=== PATIENT | female | born 1940 | race Caucasian/White ===

== ENCOUNTER 2017-01-07 17:19 | Inpatient (IN) | payer MEDICARE ==
--- NOTE | 2017-01-07 19:00 | ED ---
Lower Extremity - HPI Summary HPI Summary: Patient is referred to the ED for bilateral lower extremity swelling and pain for 2 days. She denies a history of blood clots, but does have A-fib and is on Eloquist. She denies known trauma, change in activity, SOB, CP, WILSON or fevers. The pain and swelling in her legs have begun to inhibit her ability to walk and she feels unsteady. She has not fallen, but "almost". - History of Current Complaint Chief Complaint: EDExtremityLower Stated Complaint: BOTH LEGS SWOLLEN Time Seen by Provider: 01/07/17 18:44 Hx Obtained From: Patient Mechanism Of Injury: Unknown Onset of Pain: Days - 2 Onset/Duration: Still Present - 2 Severity Initially: Mild Severity Currently: Severe Pain Intensity: 0 Timing: Constant, Lasting Days - 2 Character Of Pain: Aching, Stiffness Associated Signs And Symptoms: Positive: Swelling, Redness Aggravating Factor(s): Standing, Ambulation Alleviating Factor(s): Nothing Able to Bear Weight: Yes - with pain - Allergies/Home Medications Allergies/Adverse Reactions: Allergies Allergy/AdvReac Type Severity Reaction Status Date / Time Penicillins Allergy Severe Airway Verified 07/04/16 19:20 Obstruction Latex Allergy Intermediate Rash Verified 07/04/16 19:20 Morphine Allergy Mild GI Upset Verified 07/04/16 19:20 Sulfa Antibiotics Allergy Rash Verified 07/04/16 19:20 Codeine AdvReac Mild Vomiting Verified 07/04/16 19:20 Home Medications: Home Medications Alendronate (NF) [Fosamax (NF)] 70 mg PO WEEKLY 01/07/17 [History Confirmed 07/16] Yeuqalh-Okmnecpndgcgs-Dewbfgfd [Excedrin Extra Strength] 1 - 2 tab PO Q6HR PRN 01/07/17 [History Confirmed 01/07/17] Dextromethorphan-Guaifenesin [Robitussin Cough+Chest Co 10-200 mg] 1 cap PO Q6HR PRN 01/07/17 [History Confirmed 01/07/17] Docusate CAP* [Colace Cap*] 100 mg PO DAILY PRN MDD 300 mg 01/07/17 [History Confirmed 01/07/17] Guaifenesin/Pseudo 600/60(NF) [Mucinex D 600/60 (NF)] 1 tab PO Q12H PRN [History Confirmed 01/07/17] Loperamide HCl [Imodium A-D] 2 mg PO DAILY PRN 01/07/17 [History Confirmed 01/07] LoraTADine TAB(NF) [Claritin 10 MG TAB(NF)] 10 mg PO DAILY PRN 01/07/17 [ History Confirmed 01/07/17] Raymond-3 Fatty Acids [Fish Oil [place]-3 1000 mg] 1 cap PO DAILY 01/07/17 [History Confirmed 01/07/17] rOPINIRole TAB* [Requip TAB*] 2 mg PO BEDTIME 01/07/17 [History Confirmed ] PMH/Surg Hx/FS Hx/Imm Hx Endocrine/Hematology History: Reports: Hx Anticoagulant Therapy Denies: Hx Diabetes, Hx Thyroid Disease Cardiovascular History: Reports: Hx Congestive Heart Failure, Hx Hypercholesterolemia, Other Cardiovascular Problems/Disorders - dyslipidemia Denies: Hx Hypertension - PER PT NO LONGER ON ANY MEDS, Hx Pacemaker/ICD Respiratory History: Reports: Hx Asthma, Hx Chronic Obstructive Pulmonary Disease (COPD), Hx Pneumonia, Other Respiratory Problems/Disorders - COPD GI History: Reports: Hx Ulcer History: Denies: Hx Renal Disease Musculoskeletal History: Reports: Hx Arthritis - polyrheumatica myalgia, Hx Rheumatoid Arthritis, Hx Back Problems, Hx Osteoporosis Sensory History: Reports: Hx Contacts or Glasses Denies: Hx Hearing Aid Opthamlomology History: Reports: Hx Contacts or Glasses Psychiatric History: Denies: Hx Panic Disorder - Cancer History Cancer Type, Location and Year: SKIN 1 YR AGOJSUT DX - SPINAL MELANOMA Hx Chemotherapy: No Hx Radiation Therapy: No - Surgical History Surgery Procedure, Year, and Place: FUSION LOW BACK X5. neck surgery x4. Rt SHOULDER - RCT 1985. APPENDECTOMY Hx Anesthesia Reactions: No Infectious Disease History: Denies: Hx Hepatitis, Hx Human Immunodeficiency Virus (HIV), Traveled Outside the [place] in Last 30 Days - Family History Known Family History: Positive: None - Social History Occupation: Retired Lives: With Family Alcohol Use: None Substance Use Type: Reports: None Smoking Status (MU): Former Smoker Review of Systems Negative: Fever Negative: Chest Pain Negative: Shortness Of Breath Positive: Decreased ROM, Edema Negative: Bruising Negative: Weakness, Paresthesia, Numbness All Other Systems Reviewed And Are Negative: Yes Physical Exam Triage Information Reviewed: Yes Vital Signs On Initial Exam: Initial Vitals Temp Pulse Resp BP Pulse Ox 98.0 F 84 16 108/55 94 01/07/17 17:26 01/07/17 17:26 01/07/17 17:26 01/07/17 17:26 01/07/17 17:26 Vital Signs Reviewed: Yes Appearance: Positive: Well-Appearing, Well-Nourished, Pain Distress Skin: Positive: Warm, Skin Color Reflects Adequate Perfusion, Dry, Erythema @ - bilateral ankles R>L Head/Face: Positive: Normal Head/Face Inspection Eyes: Positive: EOMI, MOY, Conjunctiva Clear ENT: Positive: Hearing grossly normal Respiratory/Lung Sounds: Positive: Clear to Auscultation, Breath Sounds Present Cardiovascular: Positive: RRR Abdomen Description: Positive: Nontender, Soft. Negative: CVA Tenderness (R), CVA Tenderness (L) Bowel Sounds: Positive: Present Musculoskeletal: Positive: Pain @ - TTP from bilateral knees distally through feet, Anika Sign Left, Anika Sign Right, Edema Left, Edema Right Neurological: Positive: Sensory/Motor Intact, Alert, Oriented to Person Place, Time, NV Bundle Intact Distally, Unable to Assess Gait Psychiatric: Positive: Affect/Mood Appropriate AVPU Assessment: Alert Diagnostics - Vital Signs Vital Signs Temp Pulse Resp BP Pulse Ox 01/07/17 17:26 98.0 F 84 16 108/55 94 - Laboratory Result Diagrams: 01/07/17 19:50 01/07/17 19:50 Lab Statement: Any lab studies that have been ordered have been reviewed, and results considered in the medical decision making process. - Ultrasound No standard instances Ultrasound Interpretation: No Acute Changes Ultrasound Interpretation Completed By: Radiologist Lower Extremity Course/Dx - Course Course Of Treatment: I spoke with Dr. Cruz, her oncologist, who concurred that admission was the best course. He will see the patient in the morning, and she will be admitted by hospital medicine. - Diagnoses Differential Diagnosis/HQI/PQRI: Positive: Cellulitis, Compartment Syndrome, DVT , Gout, Infection, Phlebitis, Sprain, Strain Provider Diagnoses: Cellulitis - Physician Notifications Discussed Care of Patient With: Dr. Moulton, ED attending; Dr. Cruz, oncology; Dr. Burns, hospitalist. Instructed by Provider To: Admit As Inpatient Discharge - Discharge Plan Condition: Stable Disposition: ADMITTED TO [facility] Referrals: Andi Martin MD [Primary Care Provider] -
[2017-01-07] MEDS ORDERED: Diazepam SYRINGE* 5 MG/ML SYRINGE IV ONE ×2 (19:25→21:16)
[2017-01-07 20:04] LABS: Hematocrit 30 % (35-47); Hemoglobin 9.4 g/dl (12.0-16.0); Mean Corpuscular HGB Conc 31 g/dl (31-36); Mean Corpuscular Hemoglobin 26 pg (27-31); Mean Corpuscular Volume 84 fL (80-97); Mean Platelet Volume 9 um3 (7.4-10.4); Red Blood Count 3.59 10^6/ul (4.0-5.4); Red Cell Distribution Width 18 % (10.5-15); White Blood Count 48.1 10^3/ul (3.5-10.8)
[2017-01-07 20:15] LABS: Add Diff/Slide Review? Slide Review Added; Comments Flag Yes
[2017-01-07 20:27] LABS: Albumin 3.7 g/dL (3.2-5.2); BUN/Creatinine Ratio 18.6 (8-20); C Reactive Protein 5.7 mg/L (< 5.00); Calcium 9.1 mg/dL (8.6-10.3); EGFR Non-African American 64.5 (>60); Potassium 3.9 mmol/L (3.5-5.0); Total Bilirubin 0.3 mg/dL (0.2-1.0); Total Protein 7.7 g/dL (6.4-8.9)
[2017-01-07 20:56] LABS: Immature Granulocytes 19 % (0-9); Myelocytes % 3 % (0-1); Neutrophil % 63 % (38-83); Promyelocytes % 1 %
[2017-01-07 20:57] LABS: Add Path Review? YES; Hypochromasia 2+; Macrocytosis 1+; Polychromasia 1+
[2017-01-07] MEDS ORDERED: NS 0.9% 1000 ML* 1,000 ML IV ONE (21:16)
--- NOTE | 2017-01-07 22:16 | HP ---
H&P (Free Text) History and Physical: PCP: Mendoza Martin MD Oncology: Tatiana Cruz MD Date/Time of Evaluation: 01/07/2017 2230 CC: BLE swelling, RLE redness HPI: Mrs Rai is a 76YO female HX pAFIB on apixaban, COPD, & multiple myeloma who reports gradual onset beginning Saturday of BLE swelling and pain with R>L LE redness. She denies chest pain, SOB, palpitations, F/C, N/V, or other issues. There are no open sores or ulcers. She denies HX injury, fall, or increase in activity. ED evaluation is notable for WBCs of 48k 15% bandemia (baseline 30k), BNP 326 ( baseline). ECG is benign. BLE US negative for DVT. PMedHx pAFIB on apixaban multiple myeloma, not on treatment tachy-romy syndrome, no pacer COPD HLD normocytic anemia chronic leukocytosis depression RLS chronic cervicalgia Allergies Penicillins Allergy (Severe, Verified 07/04/16 19:20) Airway Obstruction Latex Allergy (Intermediate, Verified 07/04/16 19:20) Rash Morphine Allergy (Mild, Verified 07/04/16 19:20) GI Upset can take this but needs something for nausea. Sulfa Antibiotics Allergy (Verified 07/04/16 19:20) Rash Codeine Adverse Reaction (Mild, Verified 07/04/16 19:20) Vomiting pt reports she can still take med but needs premedication Ambulatory Orders Turmeric (Curcuma Longa) [Turmeric] 500 mg PO DAILY 07/04/16 rOPINIRole TAB* [Requip TAB*] 1 mg PO 1400 08/29/16 Apixaban* [Eliquis*] 5 mg PO BID #60 tab 09/03/16 Ketoconazole 2 % CREAM (NF) [Nizoral 2% CREAM (NF)] 1 applic TOPICAL BID Sertraline* [Zoloft*] 25 mg PO DAILY 11/07/16 oxyCODONE TAB* [Roxycodone TAB 5 mg*] 5 mg PO .Q4-6H PRN 11/07/16 Alendronate (NF) [Fosamax (NF)] 70 mg PO WEEKLY 01/07/17 Bducako-Evlkxrcvwgpro-Anlbhmcu [Excedrin Extra Strength] 1 - 2 tab PO Q6HR PRN 01/07/17 Dextromethorphan-Guaifenesin [Robitussin Cough+Chest Co 10-200 mg] 1 cap PO Q6HR PRN 01/07/17 Docusate CAP* [Colace Cap*] 100 mg PO DAILY PRN MDD 300 mg 01/07/17 Guaifenesin/Pseudo 600/60(NF) [Mucinex D 600/60 (NF)] 1 tab PO Q12H PRN Loperamide HCl [Imodium A-D] 2 mg PO DAILY PRN 01/07/17 LoraTADine TAB(NF) [Claritin 10 MG TAB(NF)] 10 mg PO DAILY PRN 01/07/17 [place]-3 Fatty Acids [Fish Oil [place]-3 1000 mg] 1 cap PO DAILY 01/07/17 rOPINIRole TAB* [Requip TAB*] 2 mg PO BEDTIME 01/07/17 SocHx: former smoker w/ 50PYHX, no alcohol or recreational; , lives with a friend; DNR code status FamHx: positive for HTN, CAD, uterine CA, & breast CA ROS: as above, otherwise reviewed and all were negative Constitutional: NAD, normally developed, obese elderly white female vitals: Vital Signs Temp 36.6 C 01/07/17 18:53 Pulse 84 01/07/17 18:53 Resp 20 01/07/17 21:55 BP 125/58 01/07/17 18:53 Pulse Ox 94 01/07/17 18:53 Intake & Output 01/06/17 01/07/17 01/07/17 23:59 11:59 23:59 Weight 74.843 kg HEENM: atraumatic; sclera/conjunctiva: non-icteric/clear; hearing: clinically intact; oropharynx: clear, mucosa moist Neck: soft tissue: non-tender; thyroid: normal Pulmonary: clear to auscultation bilaterally, good aeration, no accessory muscle use CV: RR/RR, normal S1S2, no carotid bruit, no jugular venous distention, 2+ B DP/ PT, no edema Abdominal: soft, non-distended, non-tender, no rebound/guarding/rigidity, normoactive bowel sounds, no hepatosplenomegaly or masses, no costovertebral angle tenderness Musculoskeletal: general: grossly intact; gait: stable Integumental: normal appearance and texture of exposed skin Psychiatric orientation: AA&O to PPS affect: calm mood: pleasant eye contact: good content: reliable responses: timely insight: good Testing: Lab Results 01/07/17 01/07/17 01/07/17 Range/Units 19:50 19:50 19:50 WBC 48.1 H (3.5-10.8) 10^3/ul RBC 3.59 L (4.0-5.4) 10^6/ul Hgb 9.4 L (12.0-16.0) g/dl Hct 30 L (35-47) % MCV 84 (80-97) fL MCH 26 L (27-31) pg MCHC 31 (31-36) g/dl RDW 18 H (10.5-15) % Plt Count 302 (150-450) 10^3/ul MPV 9 (7.4-10.4) um3 Immature Gran % (Auto) 19 H (0-9) % Neut % (Auto) 85.2 H (38-83) % Lymph % (Auto) 7.4 L (25-47) % [place] % (Auto) 6.1 (1-9) % Eos % (Auto) 0.4 (0-6) % Baso % (Auto) 0.9 (0-2) % Absolute Neuts (auto) 41.0 H (1.5-7.7) 10^3/ul Absolute Lymphs (auto) 3.6 (1.0-4.8) 10^3/ul Absolute Monos (auto) 2.9 H (0-0.8) 10^3/ul Absolute Eos (auto) 0.2 (0-0.6) 10^3/ul Absolute Basos (auto) 0.4 H (0-0.2) 10^3/ul Absolute Nucleated RBC 0.21 10^3/ul Neutrophils % 63 (38-83) % Band Neutrophils % 15 H (0-8) % Lymphocytes % 7 L (25-47) % Monocytes % 9 (0-13) % Basophils % 2 (0-2) % Myelocytes % 3 H (0-1) % Promyelocytes % 1 % Nucleated RBC % 0.4 Nucleated RBCs/100 WBC 1 H (0-0) Normal RBC Morphology Not Reportable Polychromasia 1+ Hypochromasia 2+ Macrocytosis 1+ Hem Pathologist Commnt Pending Sodium 136 (133-145) mmol/L Potassium 3.9 (3.5-5.0) mmol/L Chloride 100 L (101-111) mmol/L Carbon Dioxide 30 (22-32) mmol/L Anion Gap 6 (2-11) mmol/L BUN 16 (6-24) mg/dL Creatinine 0.86 (0.51-0.95) mg/dL Est GFR ( Amer) 83.0 (>60) Est GFR (Non-Af Amer) 64.5 (>60) BUN/Creatinine Ratio 18.6 (8-20) Glucose 94 (70-100) mg/dL Calcium 9.1 (8.6-10.3) mg/dL Total Bilirubin 0.30 (0.2-1.0) mg/dL AST 17 (13-39) U/L ALT 9 (7-52) U/L Alkaline Phosphatase 270 H (34-104) U/L C-Reactive Protein 5.70 H (< 5.00) mg/L B-Natriuretic Peptide 326 H ( - 100) pg/mL Total Protein 7.7 (6.4-8.9) g/dL Albumin 3.7 (3.2-5.2) g/dL Globulin 4.0 (2-4) g/dL Albumin/Globulin Ratio 0.9 L (1-3) ECG, personally reviewed: 1st degree AV block rate 85, no ischemia US BLE venous: negative for DVT Impression: 76F presents with RLE cellulitis in setting of background lab abnormalities 2nd multiple myeloma DIAGNOSIS & PLAN Primary RLE cellulitis : IVFs : IV cefepime, Dr Cruz had requested piperacillin/tazobactam however patient is PCN allergic : blood CXs : BLE US negative for DVT : pain control : supportive care Secondary multiple myeloma : continue oncology follow up outpatient pAFIB : continue apixaban tachy-romy syndrome : no pacer COPD : albuterol nebs : mometasone/salmeterol : tiotropium : incentive spirometry chronic normocytic anemia : monitor periodically chronic leukocytosis : monitor periodically HLD : heart healthy diet depression : continue sertraline RLS : continue ropinirole chronic cervicalgia : continue oxycodone Admission Rational: inpatient for management of RLE cellulitis in a patient at risk for rapid deterioration, morbidity, & mortality; inappropriate for outpatient setting DVTp: heparin SQ Code Status: DNR/I HCP: Rashida young
--- NOTE | 2017-01-07 23:01 | RAD ---
INDICATION: Lower extremity swelling and pain. COMPARISON: There are no prior studies available for comparison. TECHNIQUE: Multiple real-time, color flow and Doppler tracings of both lower extremities were obtained. FINDINGS: The common femoral, femoral, profunda femoral and popliteal veins all demonstrate normal compressibility, augmentation with compression and phasic response with respiration. The posterior tibial and peroneal veins demonstrate normal compressibility and augmentation with compression. There is bilateral calf edema. There is a small cystic area present along the dorsal aspect of the left foot possibly representing a ganglion cyst measuring 1.1 x 0.5 cm in size. IMPRESSION: NO EVIDENCE FOR DEEP VENOUS THROMBOSIS.
[2017-01-07] MEDS ORDERED: Cefepime(*) 2 GM in NS 0.9% 50 ML* 50 ML IVPB ONE (23:47)
[2017-01-08] MEDS ORDERED: Loperamide CAP* 2 MG PO PRN (00:55)
[2017-01-08] MEDS ORDERED: Acetaminophen TAB* 325 MG PO PRN (02:42)
[2017-01-08] MEDS ORDERED: Ondansetron INJ* 2 MG/ML VIAL IV PRN (02:42)
[2017-01-08] MEDS ORDERED: Albuterol 2.5 MG/3 ML NEB.SOL* (0.083%) INH PRN ×2 (02:42→08:37)
[2017-01-08] MEDS ORDERED: Melatonin (NF) 3 MG TAB PO PRN (02:42)
[2017-01-08] MEDS: oxyCODONE TAB* 5 MG TAB PO PRN ×4 (02:45→21:35)
[2017-01-08] MEDS: Apixaban* 5 MG TAB PO SCH ×3 (03:03→21:25)
[2017-01-08] MEDS: rOPINIRole TAB* 1 MG PO SCH ×3 (04:07→21:25)
[2017-01-08] MEDS: Omeprazole CAP* 20 MG PO SCH (06:06)
[2017-01-08] MEDS ORDERED: Albuterol 2.5 MG/3 ML NEB.SOL* (0.083%) INH SCH (07:00)
[2017-01-08 08:54] LABS: Hematocrit 28 % (35-47); Hemoglobin 8.8 g/dl (12.0-16.0); Mean Corpuscular HGB Conc 31 g/dl (31-36); Mean Corpuscular Hemoglobin 26 pg (27-31); Mean Corpuscular Volume 85 fL (80-97); Mean Platelet Volume 9 um3 (7.4-10.4); Red Blood Count 3.33 10^6/ul (4.0-5.4); Red Cell Distribution Width 18 % (10.5-15); White Blood Count 52.6 10^3/ul (3.5-10.8)
[2017-01-08] MEDS ORDERED: Tiotropium CAP.INH* CAP.INH/18 MCG INH SCH (09:00)
[2017-01-08] MEDS ORDERED: Ketoconazole 2 % CREAM (NF) 30 GM TUBE TOPICAL SCH (09:00)
[2017-01-08] MEDS ORDERED: Spiriva Inhaler DEVICE* 1 EACH DEVICE ONE (09:00)
[2017-01-08] MEDS ORDERED: Mometasone/Formoter 200/5 MDI INH SCH (09:00)
[2017-01-08] MEDS ORDERED: Pneumococcal Vac Polyvalent* 0.5 ML VIAL IM ONE (09:00)
[2017-01-08 09:01] LABS: Add Diff/Slide Review? Slide Review Added; Comments Flag Yes
[2017-01-08] MEDS: Sertraline* 25 MG TAB PO SCH (09:22)
[2017-01-08 09:39] LABS: Hypochromasia 1+; Immature Granulocytes 11 % (0-9); Metamyelocytes % 1 % (0-2); Myelocytes % 2 % (0-1); Neutrophil % 81 % (38-83)
--- NOTE | 2017-01-08 11:19 | PN ---
Subjective Date of Service: 01/08/17 Interval History: Pt is having significant pain in her legs currently. She c/o pain in both of her ankles and groin. No diarrhea. No SOB. She states she took spiriva then developed significant chills. Objective Active Medications: Acetaminophen (Tylenol Tab*) 650 mg PO Q6H PRN PRN Reason: FEVER/PAIN Albuterol (Ventolin 2.5 Mg/3 Ml Neb.Carmencita*) 2.5 mg INH Q2H PRN PRN Reason: SOB/WHEEZING Albuterol (Ventolin 2.5 Mg/3 Ml Neb.Carmencita*) 2.5 mg INH Q4H PRN PRN Reason: SOB/WHEEZING Apixaban (Eliquis*) 5 mg PO BID [facility] Last Admin: 01/08/17 09:22 Dose: 5 mg Docusate Sodium (Colace Cap*) 100 mg PO DAILY PRN PRN Reason: CONSTIPATION Cefepime HCl 2 gm/ Sodium (Chloride) 50 mls @ 50 mls/hr IVPB Q12H [facility] Sodium Chloride (Ns 0.9% 1000 Ml*) 1,000 mls @ 75 mls/hr IV PER RATE [facility] Loperamide HCl (Imodium Cap*) 2 mg PO DAILY PRN PRN Reason: DIARRHEA Melatonin (Melatonin (Nf)) 3 mg PO BEDTIME PRN; Protocol PRN Reason: Sleep Omeprazole (Prilosec Cap*) 20 mg PO DAILY@0600 [facility] Last Admin: 01/08/17 06:06 Dose: 20 mg Ondansetron HCl (Zofran Inj*) 4 mg IV Q6H PRN PRN Reason: NAUSEA Oxycodone HCl (Roxycodone Tab*) 5 mg PO Q6H PRN PRN Reason: PAIN Last Admin: 01/08/17 09:25 Dose: 5 mg Ropinirole HCl (Requip Tab*) 1 mg PO 1400 [facility] Ropinirole HCl (Requip Tab*) 2 mg PO BEDTIME [facility] Last Admin: 01/08/17 04:07 Dose: 2 mg Sertraline HCl (Zoloft*) 25 mg PO DAILY [facility] Last Admin: 01/08/17 09:22 Dose: 25 mg Vital Signs 01/08/17 01/08/17 01/08/17 01:00 01:30 02:00 Temperature Pulse Rate 77 71 176 Respiratory Rate Blood Pressure 100/55 108/58 110/68 (mmHg) O2 Sat by Pulse 87 84 85 Oximetry 01/08/17 01/08/17 01/08/17 02:30 02:45 03:08 Temperature 98.1 F Pulse Rate 92 Respiratory 18 18 Rate Blood Pressure 123/43 130/67 (mmHg) O2 Sat by Pulse 98 Oximetry 01/08/17 01/08/17 01/08/17 03:13 04:45 07:46 Temperature 98.1 F 97.9 F Pulse Rate 92 79 Respiratory 18 20 18 Rate Blood Pressure 130/67 92/56 (mmHg) O2 Sat by Pulse 98 94 Oximetry 01/08/17 01/08/17 01/08/17 07:50 08:30 09:25 Temperature Pulse Rate 78 Respiratory 16 18 16 Rate Blood Pressure (mmHg) O2 Sat by Pulse 94 Oximetry 01/08/17 11:09 Temperature Pulse Rate Respiratory 16 Rate Blood Pressure (mmHg) O2 Sat by Pulse Oximetry Oxygen Devices in Use Now: None Appearance: Elderly female sitting in a chair, NAD Eyes: No Scleral Icterus Ears/Nose/Mouth/Throat: Mucous Membranes Moist Respiratory: Symmetrical Chest Expansion and Respiratory Effort, Clear to Auscultation Cardiovascular: NL Sounds; No Murmurs; No JVD, RRR, - - 3+ R LE edema, 2+ L LE edema Abdominal: NL Sounds; No Tenderness; No Distention Extremities: No Clubbing, Cyanosis Skin: No Nodules or Sclerosis, - - mild erythema of the R lower leg/ankle, purple discoloration of the toes bilaterally, moderate erythema to the anterior left lower leg, more patchy appearing Neurological: Alert and Oriented x 3 Result Diagrams: 01/08/17 08:31 01/07/17 19:50 Assess/Plan/Problems-Billing Ms Rai is a 76 yo F with a h/o multiple myeloma, COPD, paroxysmal afib, RLS and chronic pain who presented to the ER with c/o bilateral redness and swelling of her lower legs consistent with cellulitis. - Patient Problems (1) Cellulitis and abscess of leg Current Visit: Yes Status: Acute Code(s): L02.419 - CUTANEOUS ABSCESS OF LIMB, UNSPECIFIED; L03.119 - CELLULITIS OF UNSPECIFIED PART OF LIMB SNOMED Code(s): 607040747 Comment: Will continue to treat for bilateral cellulitis however stop cefepime and narrow to ceftriaxone (pt has reported allergy to PCN where she has airway obstruction however she has had ceftriaxone in the past without problems). Continue to monitor symptoms. The patient's WBC count is higher than usual though will be difficult to interpret given her h/o MM. (2) Multiple myeloma Current Visit: Yes Status: Acute Code(s): C90.00 - MULTIPLE MYELOMA NOT HAVING ACHIEVED REMISSION SNOMED Code(s): 364032643 Comment: Pt has declined treatment with Dr. Cruz. Follow counts and follow up as outpatient. (3) Anemia Current Visit: Yes Status: Acute Code(s): D64.9 - ANEMIA, UNSPECIFIED SNOMED Code(s): 765210650 Comment: Pt remains anemic but this is likely secondary to her h/o MM. (4) Afib Current Visit: Yes Status: Acute Code(s): I48.91 - UNSPECIFIED ATRIAL FIBRILLATION SNOMED Code(s): 00806839 Comment: The patient has pAF, currently in NSR. Continue eliquis. (5) COPD (chronic obstructive pulmonary disease) Current Visit: Yes Status: Acute Code(s): J44.9 - CHRONIC OBSTRUCTIVE PULMONARY DISEASE, UNSPECIFIED SNOMED Code(s): 52193400 Comment: Continue prn nebs. Stop spiriva and dulera. (6) Restless leg syndrome Current Visit: Yes Status: Acute Comment: Stable. Continue ropinirole. Trial gabapentin 100mg qHS for burning pain in her groin at night. (7) DVT prophylaxis Current Visit: Yes Status: Acute Code(s): OOL4455 - SNOMED Code(s): 692472575 Comment: elizack (8) Full code status Current Visit: Yes Status: Acute Code(s): Z78.9 - OTHER SPECIFIED HEALTH STATUS SNOMED Code(s): 210273360
[2017-01-08] MEDS ORDERED: Cefepime(*) 2 GM in NS 0.9% 50 ML* 50 ML IVPB SCH (12:00)
[2017-01-08] MEDS: cefTRIAXone VIAL(*) 1,000 MG in NS 0.9% 50 ML* 50 ML IVPB SCH (12:26)
--- NOTE | 2017-01-08 12:29 | RAD ---
Indication: Peripheral vascular disease. Ankle-brachial indices of the lower extremity. Performed. The right ankle-brachial index is 1.0. Left ankle-brachial index is 1.1. Doppler interrogation demonstrates posterior tibial and dorsalis pedis artery demonstrates triphasic waveforms. IMPRESSION: Normal ankle-brachial indices.
[2017-01-08] MEDS: NS 0.9% 1000 ML* 1,000 ML IV SCH (16:49)
[2017-01-08] MEDS ORDERED: Gabapentin CAP(*) 100 MG PO SCH (21:00)
[2017-01-09] MEDS: oxyCODONE TAB* 5 MG TAB PO PRN ×5 (03:04→21:49)
[2017-01-09] MEDS: NS 0.9% 1000 ML* 1,000 ML IV SCH (05:54)
[2017-01-09] MEDS: Omeprazole CAP* 20 MG PO SCH (05:55)
[2017-01-09] MEDS: Docusate CAP* 100 MG PO PRN (07:14)
[2017-01-09] MEDS ORDERED: Furosemide IV* 10 MG/ML 2 ML VIAL (20 MG) IV SLOW PU ONE (08:41)
--- NOTE | 2017-01-09 09:00 | PN ---
Subjective Date of Service: 01/09/17 Interval History: Pt states she is feeling terrible. She states her legs are very painful. She describes a fullness/stretching pain in her legs. She states the pain somewhat reminds her of when she had PMR. She does believe the gabapentin helped with her restless legs. She feels she slept better last night than she has in weeks. Objective Active Medications: Acetaminophen (Tylenol Tab*) 650 mg PO Q6H PRN PRN Reason: FEVER/PAIN Albuterol (Ventolin 2.5 Mg/3 Ml Neb.Carmencita*) 2.5 mg INH Q4H PRN PRN Reason: SOB/WHEEZING Apixaban (Eliquis*) 5 mg PO BID [facility] Last Admin: 01/08/17 21:25 Dose: 5 mg Docusate Sodium (Colace Cap*) 100 mg PO DAILY PRN PRN Reason: CONSTIPATION Last Admin: 01/09/17 07:14 Dose: 100 mg Furosemide (Lasix Iv*) 20 mg IV SLOW PU ONCE ONE Stop: 01/09/17 08:42 Gabapentin (Neurontin Cap(*)) 100 mg PO TID [facility] Ceftriaxone Sodium 1,000 mg/ (Sodium Chloride) 50 mls @ 200 mls/hr IVPB Q24H [facility] Last Admin: 01/08/17 12:26 Dose: 200 mls/hr Loperamide HCl (Imodium Cap*) 2 mg PO DAILY PRN PRN Reason: DIARRHEA Melatonin (Melatonin (Nf)) 3 mg PO BEDTIME PRN; Protocol PRN Reason: Sleep Omeprazole (Prilosec Cap*) 20 mg PO DAILY@0600 [facility] Last Admin: 01/09/17 05:55 Dose: 20 mg Ondansetron HCl (Zofran Inj*) 4 mg IV Q6H PRN PRN Reason: NAUSEA Oxycodone HCl (Roxycodone Tab*) 5 mg PO Q4H PRN PRN Reason: PAIN Last Admin: 01/09/17 07:14 Dose: 5 mg Ropinirole HCl (Requip Tab*) 1 mg PO 1400 [facility] Last Admin: 01/08/17 13:35 Dose: 1 mg Ropinirole HCl (Requip Tab*) 2 mg PO BEDTIME [facility] Last Admin: 01/08/17 21:25 Dose: 2 mg Sertraline HCl (Zoloft*) 25 mg PO DAILY [facility] Last Admin: 01/08/17 09:22 Dose: 25 mg Vital Signs 01/08/17 01/08/17 01/08/17 09:25 11:09 11:21 Temperature 97.9 F Pulse Rate 85 Respiratory 16 16 18 Rate Blood Pressure 103/54 (mmHg) O2 Sat by Pulse 97 Oximetry 01/08/17 01/08/17 01/08/17 15:16 16:48 18:48 Temperature 98.0 F Pulse Rate 90 Respiratory 18 16 16 Rate Blood Pressure 102/44 (mmHg) O2 Sat by Pulse 92 Oximetry 01/08/17 01/08/17 01/08/17 19:23 21:07 21:25 Temperature 98.4 F Pulse Rate 83 Respiratory 19 20 20 Rate Blood Pressure 96/47 (mmHg) O2 Sat by Pulse 95 Oximetry 01/08/17 01/08/17 01/08/17 21:35 23:22 23:25 Temperature 97.7 F Pulse Rate 79 Respiratory 20 20 18 Rate Blood Pressure 107/55 (mmHg) O2 Sat by Pulse 96 Oximetry 01/09/17 01/09/17 01/09/17 03:04 04:24 05:04 Temperature 98.0 F Pulse Rate 79 Respiratory 20 20 18 Rate Blood Pressure 90/49 (mmHg) O2 Sat by Pulse 95 Oximetry 01/09/17 01/09/17 07:14 07:39 Temperature 98.1 F Pulse Rate 60 Respiratory 20 18 Rate Blood Pressure 112/59 (mmHg) O2 Sat by Pulse 86 Oximetry Oxygen Devices in Use Now: None Appearance: Elderly female sitting up in bed, NAD Eyes: No Scleral Icterus Ears/Nose/Mouth/Throat: Mucous Membranes Moist Respiratory: Symmetrical Chest Expansion and Respiratory Effort, Clear to Auscultation Cardiovascular: NL Sounds; No Murmurs; No JVD, RRR, No Edema Abdominal: NL Sounds; No Tenderness; No Distention Extremities: No Clubbing, Cyanosis Skin: No Nodules or Sclerosis, - - decreased erythema of the B/L Lower legs- slight warmth to touch but improved from yesterday. Neurological: Alert and Oriented x 3 Result Diagrams: 01/08/17 08:31 01/07/17 19:50 Microbiology and Other Data: Microbiology 01/08/17 04:31 Aerobic Blood Culture - Preliminary Blood Venous No Growth Day 1 Anaerobic Blood Culture - Preliminary No Growth Day 1 Assess/Plan/Problems-Billing Ms Rai is a 76 yo F with a h/o multiple myeloma, COPD, paroxysmal afib, RLS and chronic pain who presented to the ER with c/o bilateral redness and swelling of her lower legs consistent with cellulitis. - Patient Problems (1) Cellulitis and abscess of leg Current Visit: Yes Status: Acute Code(s): L02.419 - CUTANEOUS ABSCESS OF LIMB, UNSPECIFIED; L03.119 - CELLULITIS OF UNSPECIFIED PART OF LIMB SNOMED Code(s): 569795121 Comment: Appearance of legs is improved. Will continue ceftriaxone for another day then likely place change roof bolter to oral tomorrow. The patient still c/o pain in her legs. Trial lasix to help with edema which may in turn be causing her pain. Continue prn oxycodone and start gabapentin 100mg TID. (2) Multiple myeloma Current Visit: Yes Status: Acute Code(s): C90.00 - MULTIPLE MYELOMA NOT HAVING ACHIEVED REMISSION SNOMED Code(s): 527827206 Comment: Pt has declined treatment with Dr. Cruz. Repeat CBC pending for tomorrow. (3) Anemia Current Visit: Yes Status: Acute Code(s): D64.9 - ANEMIA, UNSPECIFIED SNOMED Code(s): 137714587 Comment: Pt remains anemic but this is likely secondary to her h/o MM. Repeat CBC tomorrow. (4) Afib Current Visit: Yes Status: Acute Code(s): I48.91 - UNSPECIFIED ATRIAL FIBRILLATION SNOMED Code(s): 53158522 Comment: The patient has pAF, currently in NSR. Continue eliquis. (5) COPD (chronic obstructive pulmonary disease) Current Visit: Yes Status: Acute Code(s): J44.9 - CHRONIC OBSTRUCTIVE PULMONARY DISEASE, UNSPECIFIED SNOMED Code(s): 88288441 Comment: Continue prn nebs. No signs of exacerbation. (6) Restless leg syndrome Current Visit: Yes Status: Acute Comment: Continue requip and gabapentin though increase frequency to TID as pt noted some improvement with the addition of gabapentin. (7) DVT prophylaxis Current Visit: Yes Status: Acute Code(s): UPM5493 - SNOMED Code(s): 878388499 Comment: eliquis (8) Full code status Current Visit: Yes Status: Acute Code(s): Z78.9 - OTHER SPECIFIED HEALTH STATUS SNOMED Code(s): 813078120
[2017-01-09] MEDS: Gabapentin CAP(*) 100 MG PO SCH ×3 (09:26→21:50)
[2017-01-09] MEDS: Sertraline* 25 MG TAB PO SCH (09:27)
[2017-01-09] MEDS: Apixaban* 5 MG TAB PO SCH ×2 (09:27→21:49)
[2017-01-09] MEDS: cefTRIAXone VIAL(*) 1,000 MG in NS 0.9% 50 ML* 50 ML IVPB SCH (12:39)
[2017-01-09] MEDS: rOPINIRole TAB* 1 MG PO SCH ×2 (14:10→21:50)
[2017-01-10] MEDS: oxyCODONE TAB* 5 MG TAB PO PRN ×5 (01:56→23:54)
[2017-01-10] MEDS: Omeprazole CAP* 20 MG PO SCH (05:48)
[2017-01-10 06:23] LABS: Hematocrit 29 % (35-47); Hemoglobin 9.1 g/dl (12.0-16.0); Mean Corpuscular HGB Conc 31 g/dl (31-36); Mean Corpuscular Hemoglobin 27 pg (27-31); Mean Corpuscular Volume 85 fL (80-97); Mean Platelet Volume 9 um3 (7.4-10.4); Red Blood Count 3.43 10^6/ul (4.0-5.4); Red Cell Distribution Width 19 % (10.5-15)
[2017-01-10 06:24] LABS: Comments Flag Yes; White Blood Count 51.6 10^3/ul (3.5-10.8)
[2017-01-10 06:25] LABS: Add Diff/Slide Review? Slide Review Added
[2017-01-10 06:45] LABS: Eosinophils % 1 % (0-6); Hypochromasia 2+; Immature Granulocytes 9 % (0-9); Myelocytes % 1 % (0-1); Neutrophil % 76 % (38-83); Polychromasia 1+; Toxic Granulation 1+
[2017-01-10 06:46] LABS: Add Path Review? YES; Stomatocytes 1+
[2017-01-10] MEDS: Docusate CAP* 100 MG PO PRN (08:12)
[2017-01-10] MEDS: Gabapentin CAP(*) 100 MG PO SCH ×3 (08:13→20:56)
[2017-01-10] MEDS: Sertraline* 25 MG TAB PO SCH (08:13)
[2017-01-10] MEDS: Apixaban* 5 MG TAB PO SCH ×2 (08:13→20:57)
[2017-01-10 08:19] LABS: BUN/Creatinine Ratio 19.5 (8-20); C Reactive Protein 25.38 mg/L (< 5.00); Calcium 8.7 mg/dL (8.6-10.3); EGFR African American 94.2 (>60); EGFR Non-African American 73.3 (>60); Potassium 4.1 mmol/L (3.5-5.0)
--- NOTE | 2017-01-10 11:12 | PN ---
Subjective Date of Service: 01/10/17 Interval History: Pt is feeling better today than she has in several days. She thinks the gabapentin has helped her legs dramatically though she still c/o severe pain in her groin. Additionally she c/o her shoulders hurting. She states this feels similar to when she had PMR in the past. Objective Active Medications: Acetaminophen (Tylenol Tab*) 650 mg PO Q6H PRN PRN Reason: FEVER/PAIN Albuterol (Ventolin 2.5 Mg/3 Ml Neb.Carmencita*) 2.5 mg INH Q4H PRN PRN Reason: SOB/WHEEZING Apixaban (Eliquis*) 5 mg PO BID [facility] Last Admin: 01/10/17 08:13 Dose: 5 mg Docusate Sodium (Colace Cap*) 100 mg PO DAILY PRN PRN Reason: CONSTIPATION Last Admin: 01/10/17 08:12 Dose: 100 mg Gabapentin (Neurontin Cap(*)) 100 mg PO TID [facility] Last Admin: 01/10/17 08:13 Dose: 100 mg Ceftriaxone Sodium 1,000 mg/ (Sodium Chloride) 50 mls @ 200 mls/hr IVPB Q24H [facility] Last Admin: 01/09/17 12:39 Dose: 200 mls/hr Loperamide HCl (Imodium Cap*) 2 mg PO DAILY PRN PRN Reason: DIARRHEA Melatonin (Melatonin (Nf)) 3 mg PO BEDTIME PRN; Protocol PRN Reason: Sleep Omeprazole (Prilosec Cap*) 20 mg PO DAILY@0600 [facility] Last Admin: 01/10/17 05:48 Dose: 20 mg Ondansetron HCl (Zofran Inj*) 4 mg IV Q6H PRN PRN Reason: NAUSEA Oxycodone HCl (Roxycodone Tab*) 5 mg PO Q4H PRN PRN Reason: PAIN Last Admin: 01/10/17 10:50 Dose: 5 mg Prednisone (Deltasone Tab*) 20 mg PO DAILY [facility] Ropinirole HCl (Requip Tab*) 1 mg PO 1400 [facility] Last Admin: 01/09/17 14:10 Dose: 1 mg Ropinirole HCl (Requip Tab*) 2 mg PO BEDTIME [facility] Last Admin: 01/09/17 21:50 Dose: 2 mg Sertraline HCl (Zoloft*) 25 mg PO DAILY [facility] Last Admin: 01/10/17 08:13 Dose: 25 mg Vital Signs 01/09/17 01/09/17 01/09/17 11:26 11:35 12:45 Temperature 98.2 F Pulse Rate 84 Respiratory 18 18 18 Rate Blood Pressure 93/48 (mmHg) O2 Sat by Pulse 94 Oximetry 01/09/17 01/09/17 01/09/17 14:10 14:45 15:29 Temperature 98.4 F Pulse Rate 84 Respiratory 18 18 16 Rate Blood Pressure 97/54 (mmHg) O2 Sat by Pulse 89 Oximetry 01/09/17 01/09/17 01/09/17 16:00 16:10 18:02 Temperature Pulse Rate Respiratory 18 18 Rate Blood Pressure (mmHg) O2 Sat by Pulse 89 Oximetry 01/09/17 01/09/17 01/09/17 19:25 20:00 20:02 Temperature 98.6 F Pulse Rate 92 Respiratory 20 18 18 Rate Blood Pressure 95/46 (mmHg) O2 Sat by Pulse 94 Oximetry 01/09/17 01/09/17 01/09/17 21:49 21:50 23:30 Temperature Pulse Rate Respiratory 18 18 Rate Blood Pressure (mmHg) O2 Sat by Pulse 85 Oximetry 01/09/17 01/09/17 01/10/17 23:44 23:49 00:00 Temperature 97.8 F Pulse Rate 87 Respiratory 22 18 Rate Blood Pressure 106/58 (mmHg) O2 Sat by Pulse 100 100 Oximetry 01/10/17 01/10/17 01/10/17 01:56 03:28 05:48 Temperature 98.2 F Pulse Rate 80 Respiratory 20 16 18 Rate Blood Pressure 91/48 (mmHg) O2 Sat by Pulse Oximetry 01/10/17 01/10/17 01/10/17 07:29 07:48 08:00 Temperature 98.5 F Pulse Rate 81 Respiratory 18 16 16 Rate Blood Pressure 100/62 (mmHg) O2 Sat by Pulse 96 99 Oximetry 01/10/17 01/10/17 01/10/17 08:13 09:00 10:13 Temperature Pulse Rate 75 Respiratory 18 18 Rate Blood Pressure (mmHg) O2 Sat by Pulse 99 Oximetry 01/10/17 10:50 Temperature Pulse Rate Respiratory 16 Rate Blood Pressure (mmHg) O2 Sat by Pulse Oximetry Oxygen Devices in Use Now: None Appearance: Elderly female sitting on the edge of the bed, NAD Eyes: No Scleral Icterus Ears/Nose/Mouth/Throat: Mucous Membranes Moist Respiratory: Symmetrical Chest Expansion and Respiratory Effort, Clear to Auscultation Cardiovascular: NL Sounds; No Murmurs; No JVD, RRR, - - 1-2+ B/L LE edema Abdominal: NL Sounds; No Tenderness; No Distention Extremities: - - toes are cyanotic Skin: No Nodules or Sclerosis Neurological: Alert and Oriented x 3 Result Diagrams: 01/10/17 05:57 01/10/17 00:05 Microbiology and Other Data: Microbiology 01/08/17 04:31 Aerobic Blood Culture - Preliminary Blood Venous No Growth Day 1 Anaerobic Blood Culture - Preliminary No Growth Day 1 Assess/Plan/Problems-Billing Ms Rai is a 76 yo F with a h/o multiple myeloma, COPD, paroxysmal afib, RLS and chronic pain who presented to the ER with c/o bilateral redness and swelling of her lower legs consistent with cellulitis. - Patient Problems (1) Cellulitis and abscess of leg Current Visit: Yes Status: Acute Code(s): L02.419 - CUTANEOUS ABSCESS OF LIMB, UNSPECIFIED; L03.119 - CELLULITIS OF UNSPECIFIED PART OF LIMB SNOMED Code(s): 375822121 Comment: Much improved cellulitis. Will change to keflex today to complete 4 more days of therapy. (2) Leg pain, bilateral Current Visit: Yes Status: Acute Code(s): M79.604 - PAIN IN RIGHT LEG; M79.605 - PAIN IN LEFT LEG SNOMED Code(s): 42384504 Comment: THe patient has been c/o severe pain in her groin for quite some time. She also states that she has been having pain in her shoulders. She states it reminds her of when she had PMR. ESR done today is markedly elevated. Will start prednisone 20mg daily for possible PMR. Will know quickly if this is the diagnosis as she should improve rapidly. (3) Multiple myeloma Current Visit: Yes Status: Acute Code(s): C90.00 - MULTIPLE MYELOMA NOT HAVING ACHIEVED REMISSION SNOMED Code(s): 548429543 Comment: Pt has declined treatment with Dr. Cruz. Repeat CBC shows WBC count elevated but close to her usual range. (4) Anemia Current Visit: Yes Status: Acute Code(s): D64.9 - ANEMIA, UNSPECIFIED SNOMED Code(s): 370026386 Comment: H/H stable. Continue to follow intermittently. (5) Afib Current Visit: Yes Status: Acute Code(s): I48.91 - UNSPECIFIED ATRIAL FIBRILLATION SNOMED Code(s): 98541736 Comment: The patient has pAF, currently in NSR. Continue eliquis. (6) COPD (chronic obstructive pulmonary disease) Current Visit: Yes Status: Acute Code(s): J44.9 - CHRONIC OBSTRUCTIVE PULMONARY DISEASE, UNSPECIFIED SNOMED Code(s): 42004907 Comment: Continue prn nebs. No signs of exacerbation. (7) Restless leg syndrome Current Visit: Yes Status: Acute Comment: Much improved after starting gabapentin 100mg TID. (8) DVT prophylaxis Current Visit: Yes Status: Acute Code(s): HEE4877 - SNOMED Code(s): 243049670 Comment: eliquis (9) Full code status Current Visit: Yes Status: Acute Code(s): Z78.9 - OTHER SPECIFIED HEALTH STATUS SNOMED Code(s): 342653014
[2017-01-10] MEDS ORDERED: Cephalexin CAP* 500 MG PO SCH ×2 (12:00)
[2017-01-10] MEDS: predniSONE TAB* 20 MG PO SCH (12:18)
[2017-01-10] MEDS: Cephalexin CAP* 500 MG PO SCH ×3 (12:18→20:56)
[2017-01-10] MEDS: rOPINIRole TAB* 1 MG PO SCH ×2 (13:46→20:57)
[2017-01-11] MEDS: Omeprazole CAP* 20 MG PO SCH (05:32)
[2017-01-11] MEDS: oxyCODONE TAB* 5 MG TAB PO PRN ×3 (05:32→12:58)
[2017-01-11] MEDS: Docusate CAP* 100 MG PO PRN (05:52)
[2017-01-11] MEDS: predniSONE TAB* 20 MG PO SCH (09:13)
[2017-01-11] MEDS: Cephalexin CAP* 500 MG PO SCH ×2 (09:14→12:59)
[2017-01-11] MEDS: Gabapentin CAP(*) 100 MG PO SCH ×2 (09:14→12:59)
[2017-01-11] MEDS: Sertraline* 25 MG TAB PO SCH (09:14)
[2017-01-11] MEDS: Apixaban* 5 MG TAB PO SCH (09:26)
--- NOTE | 2017-01-11 10:21 | PN ---
Subjective Date of Service: 01/11/17 Interval History: Pt is feeling ok. She states she thinks the prednisone helped some but did not completely relieve her symptoms. She states however her legs feel better than they did on admission. Objective Active Medications: Acetaminophen (Tylenol Tab*) 650 mg PO Q6H PRN PRN Reason: FEVER/PAIN Albuterol (Ventolin 2.5 Mg/3 Ml Neb.Carmencita*) 2.5 mg INH Q4H PRN PRN Reason: SOB/WHEEZING Apixaban (Eliquis*) 5 mg PO BID [facility] Last Admin: 01/11/17 09:26 Dose: 5 mg Cephalexin HCl (Keflex Cap*) 500 mg PO 0900,1300,1700,2100 [facility] Last Admin: 01/11/17 09:14 Dose: 500 mg Docusate Sodium (Colace Cap*) 100 mg PO DAILY PRN PRN Reason: CONSTIPATION Last Admin: 01/11/17 05:52 Dose: 100 mg Gabapentin (Neurontin Cap(*)) 100 mg PO TID [facility] Last Admin: 01/11/17 09:14 Dose: 100 mg Loperamide HCl (Imodium Cap*) 2 mg PO DAILY PRN PRN Reason: DIARRHEA Melatonin (Melatonin (Nf)) 3 mg PO BEDTIME PRN; Protocol PRN Reason: Sleep Omeprazole (Prilosec Cap*) 20 mg PO DAILY@0600 [facility] Last Admin: 01/11/17 05:32 Dose: 20 mg Ondansetron HCl (Zofran Inj*) 4 mg IV Q6H PRN PRN Reason: NAUSEA Oxycodone HCl (Roxycodone Tab*) 5 mg PO Q4H PRN PRN Reason: PAIN Last Admin: 01/11/17 09:13 Dose: 5 mg Prednisone (Deltasone Tab*) 20 mg PO DAILY [facility] Last Admin: 01/11/17 09:13 Dose: 20 mg Ropinirole HCl (Requip Tab*) 1 mg PO 1400 [facility] Last Admin: 01/10/17 13:46 Dose: 1 mg Ropinirole HCl (Requip Tab*) 2 mg PO BEDTIME [facility] Last Admin: 01/10/17 20:57 Dose: 2 mg Sertraline HCl (Zoloft*) 25 mg PO DAILY [facility] Last Admin: 01/11/17 09:14 Dose: 25 mg Vital Signs 01/10/17 01/10/17 01/10/17 10:50 11:56 12:50 Temperature 98.1 F Pulse Rate 78 Respiratory 16 18 18 Rate Blood Pressure 95/50 (mmHg) O2 Sat by Pulse 96 Oximetry 01/10/17 01/10/17 01/10/17 13:46 15:27 15:31 Temperature 97.9 F Pulse Rate 89 87 Respiratory 18 24 Rate Blood Pressure 99/56 (mmHg) O2 Sat by Pulse 88 92 Oximetry 01/10/17 01/10/17 01/10/17 15:46 16:49 18:49 Temperature Pulse Rate Respiratory 18 18 18 Rate Blood Pressure (mmHg) O2 Sat by Pulse Oximetry 01/10/17 01/10/17 01/10/17 19:42 19:47 20:56 Temperature 97.8 F Pulse Rate 92 Respiratory 16 17 16 Rate Blood Pressure 102/53 (mmHg) O2 Sat by Pulse 92 Oximetry 01/10/17 01/10/17 01/10/17 22:56 23:34 23:54 Temperature 97.7 F Pulse Rate 95 Respiratory 16 18 16 Rate Blood Pressure 96/55 (mmHg) O2 Sat by Pulse 95 Oximetry 01/11/17 01/11/17 01/11/17 00:00 01:54 03:23 Temperature 98.1 F Pulse Rate 92 Respiratory 16 20 Rate Blood Pressure 100/54 (mmHg) O2 Sat by Pulse 93 93 Oximetry 01/11/17 01/11/17 01/11/17 05:32 07:27 08:39 Temperature 97.6 F Pulse Rate 81 81 Respiratory 16 15 15 Rate Blood Pressure 106/60 (mmHg) O2 Sat by Pulse 98 98 Oximetry 01/11/17 01/11/17 09:13 09:14 Temperature Pulse Rate Respiratory 16 16 Rate Blood Pressure (mmHg) O2 Sat by Pulse Oximetry Oxygen Devices in Use Now: None Appearance: Elderly female sitting in a chair, NAD Eyes: No Scleral Icterus Ears/Nose/Mouth/Throat: Mucous Membranes Moist Respiratory: Symmetrical Chest Expansion and Respiratory Effort, Clear to Auscultation Cardiovascular: NL Sounds; No Murmurs; No JVD, RRR, - - 1+ edema of L LE, 2+ edema of R LE Abdominal: NL Sounds; No Tenderness; No Distention Extremities: No Clubbing, Cyanosis Skin: No Rash or Ulcers, No Nodules or Sclerosis, - - erythema of L LE resolved , mild pink discoloration of R lower leg-not hot to touch Neurological: Alert and Oriented x 3 Result Diagrams: 01/10/17 05:57 01/10/17 00:05 Microbiology and Other Data: Microbiology 01/08/17 04:31 Aerobic Blood Culture - Preliminary Blood Venous No Growth Day 1 Anaerobic Blood Culture - Preliminary No Growth Day 1 Assess/Plan/Problems-Billing Ms Rai is a 76 yo F with a h/o multiple myeloma, COPD, paroxysmal afib, RLS and chronic pain who presented to the ER with c/o bilateral redness and swelling of her lower legs consistent with cellulitis. - Patient Problems (1) Cellulitis and abscess of leg Current Visit: Yes Status: Acute Code(s): L02.419 - CUTANEOUS ABSCESS OF LIMB, UNSPECIFIED; L03.119 - CELLULITIS OF UNSPECIFIED PART OF LIMB SNOMED Code(s): 027813496 Comment: The patient's cellulitis has resolved. Continue keflex for 3more days. Continue prn oxycodone. (2) Leg pain, bilateral Current Visit: Yes Status: Acute Code(s): M79.604 - PAIN IN RIGHT LEG; M79.605 - PAIN IN LEFT LEG SNOMED Code(s): 36816167 Comment: Pt's groin pain is improved some but not completely resolved. I doubt this is PMR as she should have had a complete response to the prednisone and she did not. As she has had some relief of the pain will continue on prednisone 20mg daily x3 more days. (3) Multiple myeloma Current Visit: Yes Status: Acute Code(s): C90.00 - MULTIPLE MYELOMA NOT HAVING ACHIEVED REMISSION SNOMED Code(s): 119149095 Comment: Pt has declined treatment with Dr. Cruz. Repeat CBC shows WBC count elevated but close to her usual range. (4) Anemia Current Visit: Yes Status: Acute Code(s): D64.9 - ANEMIA, UNSPECIFIED SNOMED Code(s): 857205690 Comment: H/H stable. Continue to follow intermittently. (5) Afib Current Visit: Yes Status: Acute Code(s): I48.91 - UNSPECIFIED ATRIAL FIBRILLATION SNOMED Code(s): 33642906 Comment: The patient has pAF, currently in NSR. Continue eliquis. (6) COPD (chronic obstructive pulmonary disease) Current Visit: Yes Status: Acute Code(s): J44.9 - CHRONIC OBSTRUCTIVE PULMONARY DISEASE, UNSPECIFIED SNOMED Code(s): 31410022 Comment: Continue prn nebs. No signs of exacerbation. (7) Restless leg syndrome Current Visit: Yes Status: Acute Comment: Much improved after starting gabapentin 100mg TID. (8) DVT prophylaxis Current Visit: Yes Status: Acute Code(s): MVP4630 - SNOMED Code(s): 205678306 Comment: eliquis (9) Full code status Current Visit: Yes Status: Acute Code(s): Z78.9 - OTHER SPECIFIED HEALTH STATUS SNOMED Code(s): 517546557 Status and Disposition: d/c to [facility]
[2017-01-11 12:39] VITALS: BP 100/40
[2017-01-11] MEDS: rOPINIRole TAB* 1 MG PO SCH (12:59)
--- NOTE | 2017-01-11 13:17 | DS ---
CC: Dr. Martin DISCHARGE SUMMARY: DATE OF ADMISSION: 01/07/17 DATE OF DISCHARGE: 01/11/17 PRIMARY CARE PROVIDER: Dr. Martin. PRINCIPAL DIAGNOSES: 1. Bilateral lower extremity cellulitis. 2. Possible polymyalgia rheumatica. 3. Restless legs. SECONDARY DIAGNOSES: 1. Paroxysmal atrial fibrillation. 2. Multiple myeloma. 3. Chronic obstructive pulmonary disease. 4. Hyperlipidemia. 5. Depression. DISCHARGE MEDICATIONS: 1. Robitussin Cough Plus Chest 1 cap p.o. q.6 hours p.r.n. cough. 2. Fosamax 70 mg p.o. weekly. 3. Colace 100 mg p.o. daily p.r.n. constipation. 4. Claritin 10 mg p.o. daily p.r.n. allergies. 5. Mucinex D 1 tab p.o. q.12 hours p.r.n. congestion. 6. Excedrin Extra Strength 1 to 2 tabs p.o. q.6 hours p.r.n. pain. 7. Imodium 2 mg p.o. daily p.r.n. diarrhea. 8. Eliquis 5 mg p.o. b.i.d. 9. Requip 1 mg p.o. at 1400 and 2 mg p.o. at bedtime. 10. [place]-3 fatty acid 1 cap p.o. daily. 11. Sertraline 25 mg p.o. daily. 12. Prednisone 20 mg p.o. daily x3 days. 13. Oxycodone 5 mg p.o. q.4 hours p.r.n. pain. 14. Gabapentin 100 mg p.o. t.i.d. (new). 15. Keflex 500 mg p.o. four times a day x3 days. HOSPITAL COURSE: Ms. Rai is a 76-year-old female who presented to the emergency room on 01/07/17 w ith complaints of bilateral lower extremity swelling and redness. The patient states that she had gr adual onset of bilateral lower extremity swelling and pain with right greater than left lower extrem ity redness on the Saturday prior to admission. The patient was noted to have a white blood cell co unt of 48,000 with a 15% bandemia on presentation to the emergency room. The patient does carry a h istory of multiple myeloma and has a chronically elevated white blood cell count; however, this was higher than her prior baseline. The patient was admitted for treatment of bilateral lower extremity cellulitis. The patient was started initially on cefepime and ultimately changed to ceftriaxone. She had improvement in the degree of heat and redness of the lower extremities. She was then subseq uently changed over to Keflex, which she has tolerated just fine despite having a PENICILLIN allergy . The patient was ruled out for DVT. The patient continues to have lower extremity swelling. It i s unclear if this is chronic or new. She does sit for most of the day in a chair with her legs kay ling, so therefore this is likely contributing. During the course of the hospitalization, the patie nt complained every day of pain in her groin. She states that this was very excruciating. She stat es it reminded her of when she had polymyalgia rheumatica. A CRP and ESR were obtained. The ESR wa s elevated at 113 and the CRP elevated at 25.38 up from 5.7 on admission. Because of her elevated E SR, I did decide to try prednisone 20 mg p.o. daily. She did have some response to the prednisone t julia did not have complete resolution of her symptoms and still complains of groin pain. Feel it i s worth continuing prednisone for 3 more days to see how she does. The patient has also been prescr ibed oxycodone to be taken as needed for pain. Restless legs was another huge complaint for the patient during the course of her hospitalization. She had already been on Requip as an outpatient. She had one time described burning pain and theref ore gabapentin was started. Gabapentin 100 mg p.o. 3 times daily has provided a significant manner of relief to her restless legs. At this time, the patient felt to be stable for discharge to [facility] for short- term rehab. The patient roommate states that she cannot return home unless she is able to ambulate without a walker due to a small apartment size. The patient is in agreement with going to short-term rehab and will be discharged there today. There have been no other changes to the patient's home medication regim en. FOLLOWUP CONCERNS: The patient is being discharged to [facility] today, 01/11/17. ACTIVITY LEVEL: As tolerated. DIET: Low salt. CONDITION ON DISCHARGE: Stable. TIME SPENT: Thirty-five minutes was spent discharging this patient. [id number]/[facility] #: [id number]
== END 2017-01-11 14:00 | DRG 603 ==
LOC: ED 17:19 → SSU 01-08 00:51
PROVIDERS: ADMIT Hospitalist; ATTEND Hospitalist
DX: L03.116 Cellulitis of left lower limb (principal); C90.00 Multiple myeloma not having achieved remission; J44.9 Chronic obstructive pulmonary disease, unspecified; I48.0 Paroxysmal atrial fibrillation; E78.5 Hyperlipidemia, unspecified; F32.9 Major depressive disorder, single episode, unspecified; G25.81 Restless legs syndrome; L03.115 Cellulitis of right lower limb; M35.3 Polymyalgia rheumatica; D72.828 Other elevated white blood cell count; D64.9 Anemia, unspecified; Z88.5 Allergy status to narcotic agent; Z88.0 Allergy status to penicillin; Z88.2 Allergy status to sulfonamides; Z91.040 Latex allergy status; Z79.1 Long term (current) use of non-steroidal anti-inflammatories (NSAID); Z79.82 Long term (current) use of aspirin; Z79.891 Long term (current) use of opiate analgesic; Z79.899 Other long term (current) drug therapy; Z87.891 Personal history of nicotine dependence; Z66 Do not resuscitate; Z82.49 Family history of ischemic heart disease and other diseases of the circulatory system; Z80.3 Family history of malignant neoplasm of breast; Z80.49 Family history of malignant neoplasm of other genital organs; E66.9 Obesity, unspecified; Z68.30 Body mass index [BMI] 30.0-30.9, adult; I44.0 Atrioventricular block, first degree
CPT/HCPCS: 36415; 80048; 80053; 83880; 85025; 85060; 85652; 86140; 87040; 90732; 93005; 93922; 93970; 94640; 94760; A9270-GY; J0692; J0696; J1940; J3360; J7512